=== PATIENT | male | born 2000 | race Caucasian/White ===

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

== ENCOUNTER 2021-01-08 11:34 | Emergency (ER) | payer OTHER, SELFPAY ==
[2021-01-08 11:46] VITALS: BP 119/72; PULSE 67; RESP 20; TEMP 36.9; O2SAT 98
--- NOTE | 2021-01-08 12:01 | ED.WOUNDLAC ---
HPI - Wound/Laceration General Chief Complaint: Wound/Laceration Stated Complaint: lt leg laceration Time Seen by Provider: 01/08/21 11:40 Source: patient Mode of arrival: ambulatory History of Present Illness HPI narrative: 20-year-old male presents to [facility] with complaints of laceration to his left knee which occurred prior to arrival. Patient reports that he was trimming hedges with a trimmer and reinforcer slipped and cut his left knee. Patient is unsure of his last tetanus shot. Patient denies numbness, tingling or decreased range of motion. Onset (ago): minute(s) (30) Extremity Location: Left: knee Patient tetanus UTD: No Context: accidental Associated symptoms: none Related Data Allergies Allergy/AdvReac Type Severity Reaction Status Date / Time No Known Allergies Allergy Verified 12/21/19 14:52 Review of Systems Constitutional: Constitutional: Denies chills, Denies fatigue, Denies fever(s) and Denies weakness Cardiovascular: Cardiovascular: Denies chest pain Respiratory: Respiratory: Denies cough, Denies dyspnea and Denies wheezing Gastrointestinal: Gastrointestinal: Denies abdominal pain, Denies nausea and Denies vomiting Integumentary/Breasts: Skin/Breast: Denies pruritus, Denies erythema and Denies rash Comments: Laceration to left knee Neurologic: Denies vertigo, Denies dizziness and Denies syncope Endocrine: Endocrine: Denies fatigue PMFSH Social History Social History (Updated 01/08/21 @ 12:04 by Taylor Simon, DOCUMENTATION SPECIALIST) Smoking status: Current every day smoker Gender identity (if verbalized by the patient): Male Comments At time of signature, I agree with nursing past medical, surgical, social and family history. There is no relevant family history pertinent to the presenting complaint. Exam Const: General: no acute distress Nutritional Appearance: well nourished Orientation/consciousness: patient oriented x3 Resp: Effort & Inspection: normal respiratory effort, not labored, not tachypneic and no use of accessory muscles Auscultation: clear to auscultation bilaterally and no wheezes Cardio: Rate: regular rate, not bradycardic and not tachycardic Rhythm: regular rhythm Heart sounds: no murmurs Skin: General skin exam: normal color Rashes: no rashes Other: There are 3 lacerations noted to left knee --two lacerations measure 1 cm each. There is also a 1.5 cm laceration noted. There is no active bleeding noted. There is no streaking erythema, necrotic tissue, bruising or bleeding noted Neuro: General: patient oriented x3 and moves all extremities Speech: normal speech Extrem: General: no pedal edema Other: 3 lacerations noted to left knee --see skin section of chart Psych: Appearance: grossly normal Mental Status: mental status grossly normal Affect: normal affect Attitude: cooperative Thought content: Yes Normal thought content present Course Vital Signs Vital signs: Vital Signs Temperature 36.9 C 01/08/21 11:46 Pulse Rate 67 01/08/21 11:46 Respiratory Rate 20 01/08/21 11:46 Blood Pressure 119/72 01/08/21 11:46 Pulse Oximetry 98 01/08/21 11:46 Temperature 36.9 C 01/08/21 11:46 Pulse Rate 67 01/08/21 11:46 Respiratory Rate 20 01/08/21 11:46 Blood Pressure 119/72 01/08/21 11:46 Pulse Oximetry 98 01/08/21 11:46 Procedures Laceration Laceration 1: Date: 01/08/21 Time: 12:35 Site: lower extremity (left knee ) Size (cm): 1.5 Description: irregular Depth: simple, single layer Local Anesthetic: lidocaine 1% Amount of anesthesia used (mL): 2 Pre-repair: irrigated ====== Skin Level ====== Skin layer closed with: nylon Size (cm): 5-0 Number of sutures: 5 Technique: simple, interrupted ====== Subcutaneous Layer ====== ====== Muscle Layer ====== ====== Tendon Layer ====== Laceration 2: Date: 01/08/21 Time: 12:36
[2021-01-08] MEDS: TETANUS,DIPHTHERIA,AC PERTUSSIS ADULT (0.5 ML) BOOSTRIX IM (12:19)
== END 2021-01-08 12:46 | disposition home or self-care (01) ==
PROVIDERS: Emergency Provider Nurse Practitioner Family
DX: S81.012A Laceration without foreign body, left knee, initial encounter (principal); W29.3XXA Contact with powered garden and outdoor hand tools and machinery, initial encounter; Z23 Encounter for immunization; F17.200 Nicotine dependence, unspecified, uncomplicated
CPT/HCPCS: 12002; 90471; 90715; 99213; G0463

== ENCOUNTER 2021-01-10 11:18 | Emergency (ER) | payer OTHER, SELFPAY ==
--- NOTE | 2021-01-10 11:51 | ED_ITS ---
HPI - Wound/Laceration General Chief Complaint: Wound/Laceration Stated Complaint: Left knee cap stiches bleeding Source: patient Mode of arrival: ambulatory Limitations: no limitations History of Present Illness HPI narrative: this is 20-year-old gentleman that had a laceration that was repaired 2 days ago currently has sutures, and was concerned that there was a little doubt of blood on his Stuart bandage and was concerned, currently there is no pus draining currently no bleeding there is some scant amount of blood on his Stuart wrap but currently not bleeding there is some amount of erythema but currently on Keflex. Patient has no fever chills. Onset (ago): day(s) Location: other ( left knee) Extremity Location: Left: knee ( suture repair 2 days ago) Place: home Context: accidental Related Data Allergies Allergy/AdvReac Type Severity Reaction Status Date / Time No Known Allergies Allergy Verified 12/21/19 14:52 Review of Systems Review of Systems: All systems reviewed & are unremarkable except as noted in HPI and below PMFSH Past Medical History Medical History Patient denies medical problems Social History Social History Smoking status: Current every day smoker Gender identity (if verbalized by the patient): Male Exam Const: General: no acute distress Orientation/consciousness: patient oriented x3 HENMT: Head: normal to inspection Eyes: Conjunctivae: conjunctivae normal Pupils: Equal, round and reactive pupils present EOM: EOMs intact bilaterally Neck: Neck: normal visual inspection, no lymphadenopathy and no meningeal signs Chest: Chest palpation & inspection: normal inspection of the chest Resp: Effort & Inspection: normal respiratory effort Cardio: Rate: regular rate Rhythm: regular rhythm GI: GI Palp: Yes Soft to palpation Urinary Catheter: Urinary Catheter: patent and draining Back/Spine/Pelvis: Back: no CVA tenderness Skin: General skin exam: normal color Other: sutures in place looks well- approximated there is currently no bleeding no drainage no fever chills no warmth. Course Course Emergency Course: Area was evaluated patient was concerned with a scant amount of blood that is dried on his Stuart bandage, reassured the patient that some normal and currently no bleeding and will place bandage over the suture site. Critical Care Time Critical Care Time Critical Care Time: No Discharge Plan Discharge Clinical Impression: Laceration Patient Disposition: Home, Self-Care Condition: Stable Instructions: Antibiotic Form, Chronic Wounds (ED), Care For Your Stitches (ED) Additional Instructions: Advised patient to continue current antibiotics and follow-up with primary care physician to have sutures removed in approximately 1 week. Prescriptions: No Action cephalexin 500 mg capsule 500 mg PO Q12H 10 Days Qty: 20 RF: 0 Follow-up/Referrals: UNKNOWN,DOCTOR [Primary Care Provider] - Time of Disposition: 11:55
[2021-01-10 11:52] VITALS: BP 144/77; PULSE 70; RESP 14; TEMP 37; O2SAT 98
== END 2021-01-10 12:02 | disposition home or self-care (01) ==
PROVIDERS: Emergency Provider Emergency Medicine
DX: S81.012D Laceration without foreign body, left knee, subsequent encounter (principal)
CPT/HCPCS: 99282

== ENCOUNTER 2021-01-19 10:27 | Emergency (ER) | payer OTHER, SELFPAY ==
[2021-01-19 10:43] VITALS: BP 115/87; PULSE 59; RESP 16; TEMP 37.2; O2SAT 99
--- NOTE | 2021-01-19 10:59 | ED.GENADULT ---
HPI - General Adult General Chief complaint: Skin/Abscess/Foreign Body Stated complaint: L knee pain from stitches Time Seen by Provider: 01/19/21 10:45 Source: patient, RN notes reviewed and old records reviewed Mode of arrival: ambulatory Limitations: no limitations History of Present Illness HPI narrative: Pt to ED for removal of sutures from left knee healed laceratuions: 3.2 cm and 4 cm. no acute pain or drainage. MD complaint: left knee suture removal. Onset (ago): week(s) (2 weeks) Location: left (left knee.) Radiation: non-radiation and other (no acute pain) Pain Consistency: other (no pain) Relieving factors: none Exacerbating factors: none Associated symptoms: denies other symptoms Treatments prior to arrival: none Related Data Allergies Allergy/AdvReac Type Severity Reaction Status Date / Time No Known Allergies Allergy Verified 12/21/19 14:52 Review of Systems Review of Systems: All systems reviewed & are unremarkable except as noted in HPI and below Constitutional: Constitutional: Reports no additional constitutional complaints Eyes: Eyes: Reports no additional eye complaints ENT: Reports system reviewed and no additional complaints, except as documented Cardiovascular: Cardiovascular: Reports no additional cardiovascular complaints Respiratory: Respiratory: Reports no additional respiratory complaints Gastrointestinal: Gastrointestinal: Reports no additional gastrointestinal complaints Genitourinary: Genitourinary: Reports no additional male genitourinary complaints Musculoskeletal: Musculoskeletal: Reports no additional musculoskeletal complaints Comments: left knee healed lacerations. pain-free. Integumentary/Breasts: Skin/Breast: Reports system reviewed and no additional complaints, except as docu Neurologic: Reports system reviewed and no additional complaints, except as documented Psychiatric: Psychiatric: Reports no additional psychiatric complaints Endocrine: Endocrine: Reports no additional endocrine complaints Hematologic/Lymphatic: Hematologic/Lymphatic: Reports no additional hematologic/lymphatic complaints Allergic/Immunologic: Allergic/Immunologic: Reports no additional allergic/immunologic complaints PMFSH Past Medical History Medical History (Updated 01/19/21 @ 11:10 by Weston Leiva MD) Laceration of knee without complication Patient denies medical problems Social History Social History Smoking status: Current every day smoker Gender identity (if verbalized by the patient): Male Exam Const: General: no acute distress and alert Nutritional Appearance: well nourished Orientation/consciousness: patient oriented x3 HENMT: Head: normal to inspection Ears: external ears normal and TM's normal bilaterally General nose exam: Normal external nose present and Normal nares present Mouth: Yes lip normal Teeth and gingiva: dentition normal Eyes: Conjunctivae: conjunctivae normal Pupils: Equal, round and reactive pupils present EOM: EOMs intact bilaterally Neck: Neck: normal visual inspection Other: supple. Chest: Chest palpation & inspection: normal inspection of the chest Resp: Effort & Inspection: normal respiratory effort Auscultation: clear to auscultation bilaterally Cardio: Rate: regular rate Rhythm: regular rhythm GI: GI Palp: Yes Soft to palpation Percussion: Yes normal to percussion : Testes: Testes normal Back/Spine/Pelvis: Back: no CVA tenderness Other: left knee: healed anterior lacerations, 3.2 and 4 cm. left knee exam wnl. Skin: General skin exam: normal color Rashes: no rashes Neuro: General: patient oriented x3, moves all extremities and no focal motor deficits Extrem: General: normal to inspection and no pedal edema Psych: Appearance: grossly normal and well kempt Mental Status: mental status grossly normal Affect: normal affect Thought content: Yes Normal thought
== END 2021-01-19 11:06 | disposition home or self-care (01) ==
PROVIDERS: Emergency Provider Emergency Medicine
DX: S81.012S Laceration without foreign body, left knee, sequela (principal)
CPT/HCPCS: 99281; 99282

== ENCOUNTER 2021-06-15 07:05 | Emergency (ER) | payer OTHER, SELFPAY ==
[2021-06-15 07:14] VITALS: BP 138/81; PULSE 92; RESP 18; TEMP 37.1; O2SAT 96
--- NOTE | 2021-06-15 07:41 | ED_ITS ---
HPI - Dental/Oral General Chief complaint: Dental/Oral Stated complaint: dental issue Source: patient Mode of arrival: ambulatory Limitations: no limitations History of Present Illness HPI Narrative: this is a 21-year-old gentleman that presents with chronic tooth decay has a are cracked tooth that occurred months ago felt like it had improved and did not follow his dentist and currently having pain with surrounding gum inflammation with no fever chills no shortness of breath. MD Complaint: tooth pain Teeth map: 1. tooth decay with a cracked tooth with surrounding gum inflammation Onset (ago): week(s) Duration: constant Severity: moderate Severity scale (1-10): 6 Relieving factors: NSAIDs Exacerbating factors: chewing and cold Related Data Allergies Allergy/AdvReac Type Severity Reaction Status Date / Time No Known Allergies Allergy Verified 06/15/21 07:23 Review of Systems Review of Systems: All systems reviewed & are unremarkable except as noted in HPI and below PMFSH Past Medical History Medical History Laceration of knee without complication Patient denies medical problems Social History Social History Smoking status: Current every day smoker Gender identity (if verbalized by the patient): Male Exam Const: General: no acute distress Orientation/consciousness: patient oriented x3 HENMT: Head: normal to inspection Other: A dental left upper incisor with cracked tooth with a tooth decay and surrounding gum inflammation Eyes: Conjunctivae: conjunctivae normal Pupils: Equal, round and reactive pupils present Neck: Neck: normal visual inspection, no lymphadenopathy and no meningeal signs Chest: Chest palpation & inspection: normal inspection of the chest Resp: Effort & Inspection: normal respiratory effort Auscultation: clear to auscultation bilaterally Cardio: Rate: regular rate Rhythm: regular rhythm GI: Auscultation: normal bowel sounds : Testes: Testes normal Urinary Catheter: Urinary Catheter: patent and draining Back/Spine/Pelvis: Back: no CVA tenderness Skin: General skin exam: normal color Rashes: no rashes Psych: Mental Status: mental status grossly normal Affect: normal affect Attitude: cooperative Course Course Emergency Course: 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 Critical Care Time Critical Care Time Critical Care Time: No Discharge Plan Discharge Clinical Impression: Dental caries, Toothache, Dental abscess Patient Disposition: Home, Self-Care Instructions: Antibiotic Form, Dental Abscess (ED), Toothache (ED) Additional Instructions: Take medicine as prescribed and follow-up with dentist as scheduled. Prescriptions: New amoxicillin 500 mg capsule 500 mg PO TID Qty: 30 RF: 0 tramadol [Ultram] 50 mg tablet 50 mg PO Q6H PRN (Reason: pain) Qty: 14 RF: 0 Follow-up/Referrals: UNKNOWN,DOCTOR [Primary Care Provider] - Stand Alone Forms: Work/School Release IP
--- NOTE | 2021-06-20 20:09 | ED.DENTAL ---
HPI - Dental/Oral General Chief complaint: Dental/Oral Stated complaint: dental issue Source: patient Mode of arrival: ambulatory Limitations: no limitations History of Present Illness HPI Narrative: this is a 21-year-old gentleman that presents with some dental decay with some dental pain with no fever chills no shortness of breath no nausea vomiting Complaint: tooth pain Onset (ago): day(s) Duration: constant Severity: moderate Relieving factors: NSAIDs Exacerbating factors: chewing, drinking fluids and swallowing Related Data Allergies Allergy/AdvReac Type Severity Reaction Status Date / Time No Known Allergies Allergy Verified 06/15/21 07:23 Review of Systems Review of Systems: All systems reviewed & are unremarkable except as noted in HPI and below PMFSH Past Medical History Medical History Laceration of knee without complication Patient denies medical problems Social History Social History Smoking status: Current every day smoker Gender identity (if verbalized by the patient): Male Exam Const: General: no acute distress and alert Orientation/consciousness: patient oriented x3 HENMT: Head: normal to inspection Eyes: Conjunctivae: conjunctivae normal Pupils: Equal, round and reactive pupils present Neck: Neck: normal visual inspection, no lymphadenopathy and no meningeal signs Chest: Chest palpation & inspection: normal inspection of the chest Resp: Effort & Inspection: normal respiratory effort Urinary Catheter: Urinary Catheter: patent and draining Skin: General skin exam: normal color Rashes: no rashes Neuro: General: patient oriented x3 and moves all extremities Extrem: General: normal to inspection and no pedal edema Psych: Mental Status: mental status grossly normal Course Course Emergency Course: patient given pain medication and sent antibiotics to his pharmacy advised to follow-up with dentist. Vital Signs Vital signs: Vital Signs Temperature 37.1 C 06/15/21 07:14 Pulse Rate 92 06/15/21 07:14 Respiratory Rate 18 06/15/21 07:14 Blood Pressure 138/81 06/15/21 07:14 Pulse Oximetry 96 06/15/21 07:14 Temperature 37.1 C 06/15/21 07:14 Pulse Rate 92 06/15/21 07:14 Respiratory Rate 18 06/15/21 07:14 Blood Pressure 138/81 06/15/21 07:14 Pulse Oximetry 96 06/15/21 07:14 Critical Care Time Critical Care Time Critical Care Time: No Discharge Plan Discharge Clinical Impression: Dental caries, Toothache, Dental abscess Patient Disposition: Home, Self-Care Condition: Stable Instructions: Antibiotic Form, Dental Abscess (ED), Toothache (ED) Additional Instructions: Take medicine as prescribed and follow-up with dentist as scheduled. Prescriptions: New amoxicillin 500 mg capsule 500 mg PO TID Qty: 30 RF: 0 tramadol [Ultram] 50 mg tablet 50 mg PO Q6H PRN (Reason: pain) Qty: 14 RF: 0 Follow-up/Referrals: UNKNOWN,DOCTOR [Primary Care Provider] - Stand Alone Forms: Work/School Release IP Time of Disposition: 20:11
== END 2021-06-15 07:53 | disposition home or self-care (01) ==
PROVIDERS: Emergency Provider Emergency Medicine
DX: K02.9 Dental caries, unspecified (principal); K08.89 Other specified disorders of teeth and supporting structures; K04.7 Periapical abscess without sinus
CPT/HCPCS: 99283

== ENCOUNTER 2021-10-17 09:13 | Emergency (ER) | payer OTHER, SELFPAY ==
[2021-10-17 09:15] VITALS: BP 132/95; PULSE 60; RESP 16; TEMP 36.2; O2SAT 99
--- NOTE | 2021-10-17 09:42 | ED.URI ---
HPI - URI/Sore Throat General Chief Complaint: Upper Respiratory Infection Stated Complaint: MUCUS IN THROAT Time Seen by Provider: 10/17/21 09:42 Source: patient Mode of arrival: ambulatory Limitations: no limitations History of Present Illness HPI Narrative: this is a 21-year-old gentleman that presents with nasal congestion with postnasal drip bilateral ear pressure frontal sinus pressure for the last 4 to 5 days with low-grade fevers with no shortness of breath no chest pain no nausea vomiting. MD elicited complaint: fever, cough and nasal congestion Onset (ago): day(s) Consistency: constant Severity: mild Description of mucous: watery Related Data Allergies Allergy/AdvReac Type Severity Reaction Status Date / Time No Known Allergies Allergy Verified 10/17/21 09:24 Review of Systems Review of Systems: All systems reviewed & are unremarkable except as noted in HPI and below PMFSH Past Medical History Medical History Laceration of knee without complication Patient denies medical problems Social History Social History Smoking status: Current every day smoker Gender identity (if verbalized by the patient): Male Exam Const: General: no acute distress and alert Orientation/consciousness: patient oriented x3 HENMT: Head: normal to inspection Other: Frontal sinus and tenderness with palpation Eyes: Conjunctivae: conjunctivae normal Pupils: Equal, round and reactive pupils present Neck: Neck: normal visual inspection, no lymphadenopathy and no meningeal signs Chest: Chest palpation & inspection: normal inspection of the chest Resp: Effort & Inspection: normal respiratory effort Auscultation: clear to auscultation bilaterally GI: GI Palp: Yes Soft to palpation Percussion: Yes normal to percussion Back/Spine/Pelvis: Back: no CVA tenderness Neuro: General: patient oriented x3 and moves all extremities Extrem: General: normal to inspection and no pedal edema Psych: Mental Status: mental status grossly normal Affect: normal affect Course Course Emergency Course: patient here with sinus congestion with currently fever no shortness of Vital Signs Vital signs: Vital Signs Temperature 36.2 C L 10/17/21 09:15 Pulse Rate 60 10/17/21 09:15 Respiratory Rate 16 10/17/21 09:15 Blood Pressure 132/95 H 10/17/21 09:15 Pulse Oximetry 99 10/17/21 09:15 Temperature 36.2 C L 10/17/21 09:15 Pulse Rate 60 10/17/21 09:15 Respiratory Rate 16 10/17/21 09:15 Blood Pressure 132/95 H 10/17/21 09:15 Pulse Oximetry 99 10/17/21 09:15 Critical Care Time Critical Care Time Critical Care Time: No Discharge Plan Discharge Clinical Impression: Sinusitis Qualifiers: Sinusitis location: frontal Chronicity: acute Recurrence: non-recurrent Qualified Code(s): J01.10 - Acute frontal sinusitis, unspecified Patient Disposition: Home, Self-Care Condition: Stable Instructions: Antibiotic Form, Sinusitis (ED) Additional Instructions: can take Claritin D [id number] twice daily x5 days along with prescribed medication, and follow-up with primary care physician if symptoms persist or worsen. Prescriptions: New azithromycin [Zithromax Z-Robin] 250 mg tablet See Rx Instructions .ROUTE .COMPLEX Qty: 6 RF: 0 benzonatate 100 mg capsule 100 mg PO TID Qty: 20 RF: 0 Follow-up/Referrals: UNKNOWN,DOCTOR [Primary Care Provider] - Time of Disposition: 09:46
== END 2021-10-17 09:52 | disposition home or self-care (01) ==
PROVIDERS: Emergency Provider Emergency Medicine
DX: J01.10 Acute frontal sinusitis, unspecified (principal)
CPT/HCPCS: 99283

== ENCOUNTER 2022-04-07 08:54 | Emergency (ER) | payer OTHER, SELFPAY ==
[2022-04-07 09:06] VITALS: BP 142/82; PULSE 56; RESP 18; TEMP 36.4; O2SAT 100
[2022-04-07 09:25] LABS: Basophils Absolute Auto 0.04 K/mm3 (0.00-0.10); Basophils Percent Auto 0.7 % (0.0-1.0); Eosinophils Absolute Auto 0.09 K/mm3 (0.02-0.50); Eosinophils Percent Auto 1.5 % (1.0-6.0); Hematocrit 43.2 % (40.0-54.0); Hemoglobin 14.6 g/dL (14.0-18.0); Immature Granulocyte Absolute 0.03 K/mm3 (0.00-0.00); Immature Granulocyte Percent A 0.5 % (0.0-0.0); Lymphocytes Absolute Auto 1.49 K/mm3 (1.10-4.50); Lymphocytes Percent Auto 25.6 % (18.0-42.0); Mean Corpuscular HGB Conc 33.8 g/dL (32.0-36.0); Mean Corpuscular Hemoglobin 32.3 pg (27.0-31.0); Mean Corpuscular Volume 95.6 fL (78.0-102.0); Mean Platelet Volume 9.8 fl (8.7-11.0); Monocytes Absolute Auto 0.45 K/mm3 (0.10-0.90); Monocytes Percent Auto 7.7 % (2.0-11.0); Neutrophils Absolute Auto 3.7 K/mm3 (1.7-7.2); Platelet Count Result 218 K/mm3 (150-420); Red Blood Count 4.52 M/mm3 (4.70-6.10); Red Cell Distribution Width 11.9 % (11.6-14.4); White Blood Count 5.8 K/mm3 (4.8-10.8)
[2022-04-07 09:40] LABS: Alanine Aminotransferase 17 U/L (16-63); Albumin Level 3.9 g/dL (3.4-5.0); Alkaline Phosphatase 59 U/L (46-116); Anion Gap 8 mmol/L (8-16); Aspartate Amino Transferase 14 U/L (15-37); Bilirubin,Total 0.5 mg/dL (0.00-1.00); Blood Urea Nitrogen 14 mg/dL (7-18); Calcium 8.8 mg/dL (8.5-10.1); Carbon Dioxide 27 mmol/L (21-32); Chloride 105 mmol/L (98-108); Estimated CRCL calculation 118 ml/min; Estimated Glomerular Filt Rate > 60; Glucose 92 mg/dL (70-99); Lipase 50 U/L (73-393); Osmolality Calculated 290 mOsm/kg (285-295); Potassium 3.7 mmol/L (3.5-5.1); Sodium 140 mmol/L (136-145); Total Protein 6.8 g/dL (6.4-8.2)
[2022-04-07] MEDS: MAG HYDROX/ALUMINUM HYD/SIMETH 30 ML, PHENobarb/HYOSCY/ATROPINE/SCOP 32.4 MG, LIDOCAINE... PO (09:40)
--- NOTE | 2022-04-07 09:59 | ED.ABDPAIN ---
HPI - Abdominal Pain General Chief Complaint: Abdominal Pain Stated Complaint: ABDOMINAL PAIN, NAUSEA Time Seen by Provider: 04/07/22 09:06 History of Present Illness HPI narrative: Pt presents with queezy feeling in his stomach and sour stomach. Pt deneis pain. Pt has loose stools but denies diarrhea. Pt denies balck stools. Pt has had similar issues off and on since middle school but has not seen anyone for years. Pt trying to get established with PCP. Related Data Allergies Allergy/AdvReac Type Severity Reaction Status Date / Time No Known Allergies Allergy Verified 04/07/22 09:19 Review of Systems Review of Systems: All systems reviewed & are unremarkable except as noted in HPI and below PMFSH Past Medical History Medical History Laceration of knee without complication Patient denies medical problems Social History Social History Smoking status: Current every day smoker Gender identity (if verbalized by the patient): Male Exam Const: General: healthy appearing and no acute distress Nutritional Appearance: well nourished Orientation/consciousness: patient oriented x3 Limitations: no limitations Resp: Effort & Inspection: normal respiratory effort Auscultation: clear to auscultation bilaterally Cardio: Rate: regular rate Rhythm: regular rhythm GI: GI Palp: Yes Soft to palpation Auscultation: normal bowel sounds Skin: General skin exam: normal color Rashes: no rashes Wounds: no wounds Neuro: General: patient oriented x3, moves all extremities, no meningeal signs and no focal motor deficits Speech: normal speech Extrem: General: normal to inspection and no clubbing, cyanosis or edema Psych: Mental Status: mental status grossly normal Affect: normal affect Attitude: cooperative Course Vital Signs Vital signs: Vital Signs Temperature 97.5 F L 04/07/22 09:06 Pulse Rate 56 L 04/07/22 09:06 Respiratory Rate 18 04/07/22 09:06 Blood Pressure 142/82 H 04/07/22 09:06 Pulse Oximetry 100 04/07/22 09:06 Oxygen Delivery Room Air 04/07/22 09:06 Temperature 97.5 F L 04/07/22 09:06 Pulse Rate 56 L 04/07/22 09:06 Respiratory Rate 18 04/07/22 09:06 Blood Pressure 142/82 H 04/07/22 09:06 Pulse Oximetry 100 04/07/22 09:06 Oxygen Delivery Room Air 04/07/22 09:06 MDM - Abdominal Pain Lab Data Result diagrams: 04/07/22 09:20 04/07/22 09:20 Labs: Lab Results 04/07/22 04/07/22 Range/Units 09:20 09:20 WBC 5.8 (4.8-10.8) K/mm3 RBC 4.52 L (4.70-6.10) M/mm3 Hgb 14.6 (14.0-18.0) g/dL Hct 43.2 (40.0-54.0) % MCV 95.6 (78.0-102.0) fL MCH 32.3 H (27.0-31.0) pg MCHC 33.8 (32.0-36.0) g/dL RDW 11.9 (11.6-14.4) % Plt Count 218 (150-420) K/mm3 MPV 9.8 (8.7-11.0) fl Immature Gran % (Auto) 0.5 H (0.0-0.0) % Neut % (Auto) 64.0 (50.0-70.0) % Lymph % (Auto) 25.6 (18.0-42.0) % [place] % (Auto) 7.7 (2.0-11.0) % Eos % (Auto) 1.5 (1.0-6.0) % Baso % (Auto) 0.7 (0.0-1.0) % Lymph # (Auto) 1.49 (1.10-4.50) K/mm3 [place] # (Auto) 0.45 (0.10-0.90) K/mm3 Eos # (Auto) 0.09 (0.02-0.50) K/mm3 Baso # (Auto) 0.04 (0.00-0.10) K/mm3 Abs Immat Gran (auto) 0.03 H (0.00-0.00) K/mm3 Absolute Neuts (auto) 3.7 (1.7-7.2) K/mm3 Absolute Nucleated RBC 0.00 (0.00-0.00) K/mm3 Nucleated RBC % 0.0 (0-0.0) % Sodium 140 (136-145) mmol/L Potassium 3.7 (3.5-5.1) mmol/L Chloride 105 (98-108) mmol/L Carbon Dioxide 27 (21-32) mmol/L Anion Gap 8 (8-16) mmol/L BUN 14 (7-18) mg/dL Creatinine 0.91 (0.70-1.30) mg/dL Estim Creat Clear Calc 118 ml/min Estimated GFR > 60 (59 - ) Glucose 92 (70-99) mg/dL Calculated Osmolality 290 (285-295) mOsm/kg Calcium 8.8 (8.5-10.1) mg/dL Total Bilirubin 0.5 (0.00-1.00) mg/dL AST 14 L (15-37) U
== END 2022-04-07 10:21 | disposition home or self-care (01) ==
PROVIDERS: Emergency Provider Emergency Medicine
DX: K29.70 Gastritis, unspecified, without bleeding (principal)
CPT/HCPCS: 36415; 80053; 83690; 85025; 99283; A9270

== ENCOUNTER 2022-04-25 08:43 | Outpatient (CLI) | payer OTHER, SELFPAY ==
--- NOTE | ~2022-04-25 | US_ITS ---
EXAMINATION: US abdomen complete DATE: 04/25/2022 09:23 INDICATION: Nausea TECHNIQUE: Multiple grayscale and Doppler ultrasound images of the abdomen were obtained. COMPARISON: None available FINDINGS: Bowel gas obscures visualization of the pancreas. The visualized portions of the pancreas a re unremarkable. The liver is normal with normal echogenicity and echotexture. No surface nodularity. Normal hepatopetal flow in the main portal vein. The gallbladder is normal with no abnormal wall thi ckening, pericholecystic fluid or stones. The normal common bile duct measures 2 mm. There was no son ographic Zulu[place] sign. The visualized portions of the aorta and inferior vena cava are normal. The right kidney measures 9.5 x 4.9 x 4.9 cm. The left kidney measures 11.3 x 5.0 x 5.7 cm. The kidne ys demonstrate normal parenchymal echogenicity. There is no hydronephrosis. The spleen is normal in a ppearance and measures 10.8 cm. IMPRESSION: 1. No sonographic correlate for the patient's symptoms. Reviewed, dictated and finalized at location B.
== END 2022-04-25 08:44 | disposition home or self-care (01) ==
LOC: CHSIMG 08:45
PROVIDERS: PCP Family Medicine; Visit Provider Nurse Practitioner Family
DX: R11.0 Nausea (principal)
CPT/HCPCS: 76700

== ENCOUNTER 2022-05-27 13:09 | Emergency (ER) | payer OTHER, SELFPAY ==
--- NOTE | ~2022-05-27 | XR_ITS ---
EXAMINATION: XR chest 1V portable DATE: 05/27/2022 14:47 INDICATION: Cough. COVID-19 positive. TECHNIQUE: A single frontal view of the chest was obtained on 2 radiographs. COMPARISON: None. FINDINGS: There is no pneumonia, pleural effusion, pneumothorax. The heart size is normal. IMPRESSION: 1. No acute cardiopulmonary disease. Reviewed, dictated and finalized at location A. 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
[2022-05-27 13:25] VITALS: BP 138/92; PULSE 94; RESP 20; TEMP 36.7; O2SAT 97
--- NOTE | 2022-05-27 14:13 | ED.FEVER ---
HPI - Fever General Chief Complaint: Fever Stated Complaint: fever Time Seen by Provider: 05/27/22 13:25 History of Present Illness HPI Narrative: Pt presents with fever, body aches, cough and sore throat today. Pt says he took motrin and fever has broken because he is sweating. Pt denies vomiting or diarrhea. Pt denies known exposures and no family members are sick. Related Data Allergies Allergy/AdvReac Type Severity Reaction Status Date / Time No Known Allergies Allergy Verified 05/27/22 13:31 Review of Systems Review of Systems: All systems reviewed & are unremarkable except as noted in HPI and below PMFSH Past Medical History Medical History Laceration of knee without complication Patient denies medical problems Social History Social History Smoking status: Current every day smoker Gender identity (if verbalized by the patient): Male Exam Const: General: healthy appearing and no acute distress Nutritional Appearance: well nourished Orientation/consciousness: patient oriented x3 Limitations: no limitations HENMT: Head: normal to inspection Face/Nose/Sinus: Normal external nose present Mouth: Yes Normal oral and palatal mucosa present Throat: posterior oropharynx normal Eyes: EOM: EOMs intact bilaterally Neck: Neck: normal visual inspection, no lymphadenopathy and no meningeal signs Resp: Effort & Inspection: normal respiratory effort Auscultation: clear to auscultation bilaterally Cardio: Rate: regular rate Rhythm: regular rhythm GI: GI Palp: Yes Soft to palpation Auscultation: normal bowel sounds Skin: General skin exam: normal color Rashes: no rashes Neuro: General: patient oriented x3, moves all extremities, no meningeal signs, no focal motor deficits and CN's II-XI intact bilaterally Cranial nerves: Yes Nystagmus not present Speech: normal speech Extrem: General: normal to inspection, no clubbing, cyanosis or edema and no pedal edema Psych: Appearance: grossly normal Mental Status: mental status grossly normal Affect: normal affect Attitude: cooperative Course Vital Signs Vital signs: Vital Signs Temperature 98.1 F 05/27/22 13:25 Pulse Rate 94 05/27/22 13:25 Respiratory Rate 20 05/27/22 13:25 Blood Pressure 138/92 H 05/27/22 13:25 Pulse Oximetry 97 05/27/22 13:25 Oxygen Delivery Room Air 05/27/22 13:25 Temperature 99.0 F 05/27/22 14:51 Pulse Rate 70 05/27/22 14:51 Respiratory Rate 18 05/27/22 14:51 Blood Pressure 120/63 05/27/22 14:51 Pulse Oximetry 98 05/27/22 14:51 Oxygen Delivery Room Air 05/27/22 14:51 MDM - Fever MDM Narrative Medical decision making narrative: covid positive, discussed varghese, pt would rather not take at this time Lab Data Labs: Lab Results 05/27/22 05/27/22 Range/Units 13:29 13:29 Influenza A (RT-PCR) Negative (Negative) Influenza B (RT-PCR) Negative (Negative) RSV (RT-PCR) Negative (Negative) SARS-CoV-2 RNA (RT-PCR) Positive A (Negative) Group A Strep (PCR) Not detected (Negative) Discharge Plan Discharge Clinical Impression: COVID Patient Disposition: Home, Self-Care Condition: Stable Instructions: Antibiotic Form, COVID-19 (Coronavirus Disease 2019) (ED) Prescriptions: No Action pantoprazole 40 mg tablet,delayed release (DR/EC) 40 mg PO QHS Qty: 30 1RF Follow-up/Referrals: Angelina Guerra NP [Primary Care Provider] - Stand Alone Forms: Work/School Release IP
[2022-05-27 14:18] LABS: Strep Group A RT-PCR Not Detected (Negative)
[2022-05-27 14:25] LABS: Influenza A QL RT-PCR Negative (Negative); Influenza B QL RT-PCR Negative (Negative); SARS-CoV-2 RNA PCR Positive (Negative)
[2022-05-27 14:28] LABS: RSV RNA, RT-PCR Negative (Negative)
[2022-05-27 14:51] VITALS: BP 120/63; PULSE 70; RESP 18; TEMP 37.2; O2SAT 98
== END 2022-05-27 14:59 | disposition home or self-care (01) ==
PROVIDERS: Emergency Provider Emergency Medicine; PCP Nurse Practitioner Family
DX: U07.1 COVID-19 (principal)
CPT/HCPCS: 71045; 87637; 87651; 99283

== ENCOUNTER 2022-06-09 03:21 | Emergency (ER) | payer OTHER, SELFPAY ==
[2022-06-09 03:23] VITALS: BP 114/82; PULSE 85; RESP 16; TEMP 36.9; O2SAT 97
[2022-06-09] MEDS: IBUPROFEN 400 MG TABLET 800 MG PO (03:31)
[2022-06-09 03:54] LABS: Basophils Absolute Auto 0.03 K/mm3 (0.00-0.10); Basophils Percent Auto 0.4 % (0.0-1.0); Eosinophils Absolute Auto 0.02 K/mm3 (0.02-0.50); Eosinophils Percent Auto 0.3 % (1.0-6.0); Hematocrit 40.9 % (40.0-54.0); Hemoglobin 14.1 g/dL (14.0-18.0); Immature Granulocyte Absolute 0.01 K/mm3 (0.00-0.00); Immature Granulocyte Percent A 0.1 % (0.0-0.0); Lymphocytes Percent Auto 16.9 % (18.0-42.0); Mean Corpuscular HGB Conc 34.5 g/dL (32.0-36.0); Mean Corpuscular Hemoglobin 33.1 pg (27.0-31.0); Monocytes Absolute Auto 1.05 K/mm3 (0.10-0.90); Monocytes Percent Auto 14.7 % (2.0-11.0); Neutrophils Absolute Auto 4.8 K/mm3 (1.7-7.2); Neutrophils Percent Auto 67.6 % (50.0-70.0); Platelet Count Result 219 K/mm3 (150-420); Red Blood Count 4.26 M/mm3 (4.70-6.10); Red Cell Distribution Width 12.1 % (11.6-14.4); White Blood Count 7.1 K/mm3 (4.8-10.8)
[2022-06-09 04:06] LABS: Alanine Aminotransferase 15 U/L (16-63); Albumin Level 3.9 g/dL (3.4-5.0); Alkaline Phosphatase 59 U/L (46-116); Anion Gap 7 mmol/L (8-16); Aspartate Amino Transferase 14 U/L (15-37); Bilirubin,Total 0.3 mg/dL (0.00-1.00); Blood Urea Nitrogen 17 mg/dL (7-18); Calcium 8.6 mg/dL (8.5-10.1); Carbon Dioxide 27 mmol/L (21-32); Chloride 104 mmol/L (98-108); Estimated CRCL calculation 93 ml/min; Estimated Glomerular Filt Rate > 60; Glucose 91 mg/dL (70-99); Osmolality Calculated 287 mOsm/kg (285-295); Potassium 3.6 mmol/L (3.5-5.1); Sodium 138 mmol/L (136-145)
[2022-06-09 04:08] VITALS: TEMP 36.6
--- NOTE | 2022-06-09 04:14 | ED.FEVER ---
HPI - Fever General Chief Complaint: Fever Stated Complaint: Sick Time Seen by Provider: 06/09/22 03:23 Source: patient and RN notes reviewed Mode of arrival: ambulatory Limitations: no limitations History of Present Illness MD elicited complaint: fever and other (cough x 2 days.) Onset (ago): day(s) (2) Context: recent antibiotic use Exacerbating factors: nothing Relieving factors: ibuprofen Associated symptoms: myalgias, nasal congestion and cough Treatments prior to arrival fever: ibuprofen Related Data Allergies Allergy/AdvReac Type Severity Reaction Status Date / Time No Known Allergies Allergy Verified 06/09/22 03:59 Review of Systems Review of Systems: All systems reviewed & are unremarkable except as noted in HPI and below Constitutional: Constitutional: Reports no additional constitutional complaints and Reports fever(s) Eyes: Eyes: Reports no additional eye complaints ENT: Reports system reviewed and no additional complaints, except as documented Cardiovascular: Cardiovascular: Reports no additional cardiovascular complaints Respiratory: Respiratory: Reports no additional respiratory complaints Gastrointestinal: Gastrointestinal: Reports no additional gastrointestinal complaints Musculoskeletal: Musculoskeletal: Reports no additional musculoskeletal complaints Integumentary/Breasts: Skin/Breast: Reports system reviewed and no additional complaints, except as docu Neurologic: Reports system reviewed and no additional complaints, except as documented Psychiatric: Psychiatric: Reports no additional psychiatric complaints Endocrine: Endocrine: Reports no additional endocrine complaints Hematologic/Lymphatic: Hematologic/Lymphatic: Reports no additional hematologic/lymphatic complaints Allergic/Immunologic: Allergic/Immunologic: Reports no additional allergic/immunologic complaints PMFSH Past Medical History Medical History Laceration of knee without complication Patient denies medical problems Viral syndrome Social History Social History Smoking status: Current every day smoker Gender identity (if verbalized by the patient): Male Exam Const: General: no acute distress and well nourished Nutritional Appearance: well nourished Orientation/consciousness: patient oriented x3 Limitations: no limitations HENMT: Head: normal to inspection Ears: external ears normal, TM's normal bilaterally and EAC's normal Face/Nose/Sinus: Normal external nose present, Normal nares present, normal facial exam and sinuses nontender Face and sinus: normal facial exam and sinuses nontender Mouth: Yes Normal oral and palatal mucosa present and Yes moist mucous membranes Teeth and gingiva: dentition normal Other: mild pharyngeal redness Eyes: Conjunctivae: conjunctivae normal Pupils: Equal, round and reactive pupils present EOM: EOMs intact bilaterally Neck: Neck: normal visual inspection, no lymphadenopathy and no meningeal signs Chest: Chest palpation & inspection: normal inspection of the chest Resp: Effort & Inspection: normal respiratory effort Auscultation: clear to auscultation bilaterally Cardio: Rate: regular rate Rhythm: regular rhythm GI: GI Palp: Yes Soft to palpation and No Tenderness to palpation present (GI) Auscultation: normal bowel sounds : General: Yes bladder normal to palpation and Yes no CVA tenderness Back/Spine/Pelvis: Back: no CVA tenderness Skin: General skin exam: normal color Rashes: no rashes Wounds: no wounds Neuro: General: patient oriented x3, moves all extremities, no meningeal signs, no focal motor deficits and CN's II-XI intact bilaterally Cranial nerves: Yes Equal, round and reactive pupils present and Yes Nystagmus not present Speech: normal speech Gait exam (Neuro): Normal gait present Extrem: General: normal to inspection and no pedal edema
[2022-06-09] MEDS: guaiFENesin 12 HR 600 MG TABCR PO (04:21)
[2022-06-09 04:34] LABS: Influenza A QL RT-PCR Positive (Negative); Influenza B QL RT-PCR Negative (Negative); SARS-CoV-2 RNA PCR Negative (Negative)
[2022-06-09 04:50] LABS: RSV RNA, RT-PCR Negative (Negative)
[2022-06-09 04:57] VITALS: BP 122/80; PULSE 61; RESP 16; TEMP 36.6; O2SAT 100
== END 2022-06-09 05:04 | disposition home or self-care (01) ==
PROVIDERS: Emergency Provider Emergency Medicine; PCP Nurse Practitioner Family
DX: B34.9 Viral infection, unspecified (principal); Z20.822 Contact with and (suspected) exposure to COVID-19
CPT/HCPCS: 36415; 80053; 85025; 87637; 99283; A9270

== ENCOUNTER 2023-02-10 06:34 | Emergency (ER) | payer OTHER, SELFPAY ==
[2023-02-10] VITALS (18 sets, daily range): BP systolic 131–148; BP diastolic 82–109; PULSE 47–90; RESP 8–22; TEMP 36.7; O2SAT 92–100
--- NOTE | ~2023-02-10 | XR_ITS ---
Portable chest x-ray Comparison: 05/27/2022 Clinical History: Pain Findings: Lungs are clear, without focal consolidation or pleural effusion. Cardiomediastinal silho uette is stable. Bones and soft tissues are unremarkable. Impression: Clear lungs. Reviewed, dictated and finalized at location . Impression: Clear lungs.
--- NOTE | ~2023-02-10 | CT_ITS ---
Non-contrast CT scan of the Abdomen and Pelvis Clinical indication: Abdominal pain Technique: 2.5 mm axial scans were obtained through the abdomen and pelvis without intravenous or or al contrast. Dose reduction technique was used on this scan by utilizing automated exposure control a nd iterative reconstruction technique. The dose-length product (DLP) was 254.86 mGy-cm. Findings: Images through the lung bases reveal no abnormalities. There is a 6.6 x 5.1 x 6.9 cm irregular hypodense masslike lesion in the left upper quadrant, consist ent with large hematoma, abutting the medial aspect of the spleen. No focal splenic lesion identified . The liver, kidneys, pancreas, gallbladder, and adrenals appear normal. There is no aortic aneurysm. There is no evidence of bowel obstruction. Images through the pelvis were performed. Urinary bladder unremarkable. No pelvic mass evident. There is moderate hemorrhagic ascites in the pelvis. Impression: 6.5 x 5.1 x 6.9 cm hematoma in left upper quadrant, abutting the medial aspect of the spleen, with as sociated moderate pelvic hemorrhagic ascites. Precise etiology for the hemorrhage is unclear. No defi nite splenic mass or lesion identified on this noncontrast exam. If there is clinical concern for act judi extravasation/bleeding, then consider CT angiogram for further evaluation. Case discussed with Dr. Cuadra at the time of this reading. Reviewed, dictated and finalized at location M. Impression: 6.5 x 5.1 x 6.9 cm hematoma in left upper quadrant, abutting the medial aspect of the spleen, with associated moderate pelvic hemorrhagic ascites. Precise linnea ology for the hemorrhage is unclear. No definite splenic mass or lesion identif ied on this noncontrast exam. If there is clinical concern for active extravasa tion/bleeding, then consider CT angiogram for further evaluation. Case discussed with Dr. Cuadra at the time of this reading.
--- NOTE | ~2023-02-10 | XR_ITS ---
Left Shoulder Technique: AP and scapular Y views were obtained. Clinical History: Pain Findings: No fracture or dislocation is seen. Osseous alignment is anatomic. The glenohumeral and acr omioclavicular joint spaces are preserved. Soft tissues are unremarkable. Impression: Unremarkable left shoulder radiographs. Reviewed, dictated and finalized at [facility]. Impression: Unremarkable left shoulder radiographs.
--- NOTE | ~2023-02-10 | CT_ITS ---
EXAMINATION: CTA abdomen pelvis DATE: 02/10/2023 08:42 INDICATION: Left upper quadrant abdominal pain. Peritoneal bleed. TECHNIQUE: Computed tomographic angiography (CTA) of the abdomen and pelvis was performed with 100 mL Omnipaque-350 intravenous contrast. Additional 3D reconstructions utilizing rotating maximum intensi ty projection (MIP) were performed. Automated exposure control and iterative reconstruction technique were employed. The dose-length product was 242.73 mGy-cm. COMPARISON: 02/10/2023 at 7:47 AM FINDINGS: Lung bases are clear. Heart size is normal. No pericardial or pleural effusion. Liver, gallbladder, p ancreas, bilateral adrenal glands and kidneys are normal. Again seen is a 6.5 x 5.1 x 6.1 cm hematoma along the anteromedial aspect of the spleen. Within the dome is a small focus of active contrast ext ravasation which appears to rise from a small vessel at the splenic hilum as opposed to directly from the spleen to suggest a splenic injury. The diffusely heterogeneous enhancement pattern of the splee n is most likely related to the early arterial phase of contrast. Additional hemoperitoneum is again seen in the deep pelvis. No abnormal bowel wall thickening or obstruction. Bladder is normal. No free intraperitoneal gas. No pathologically enlarged abdominal or pelvic lymphadenopathy. Small Schmorl's node along the superior endplate of L4. IMPRESSION: 1. Hemoperitoneum with active extravasation at the origin of the bleed arising from a very small vess el near the splenic hilum. Consider endovascular embolization. Dr. Morgan discussed these findings with Dr. Cuadra at 8:52 AM. Reviewed, dictated and finalized at location L. IMPRESSION: 1. Hemoperitoneum with active extravasation at the origin of the bleed arising from a very small vessel near the splenic hilum. Consider endovascular emboliza tion. Dr. Morgan discussed these findings with Dr. Cuadra at 8:52 AM.
--- NOTE | 2023-02-10 06:45 | ECG_ITS ---
Measurements Intervals [place] Rate: 66 P: 80 MD: 141 QRS: 86 QRSD: 92 T: 69 QT: 387 QTc: 408 Interpretive Statements SINUS RHYTHM WITH MARKED SINUS ARRHYTHMIA NORMAL ECG NO PREVIOUS ECG AVAILABLE FOR COMPARISON Electronically Signed On 02-10-2023 13:28:01 CDT by Jona Kang M.D.
--- NOTE | 2023-02-10 06:45 | ED.GENADULT ---
HPI - General Adult General Chief complaint: Abdominal Pain Stated complaint: shoulder and abd pain Time Seen by Provider: 02/10/23 06:45 History of Present Illness HPI narrative: 22-year-old male presenting with abdominal pain and left shoulder pain. Patient states his symptoms started overnight. He describes his pain is near constant stabbing/cramping pain in his upper abdomen that radiates into his chest and left shoulder. He denies any recent injuries or illnesses. Onset (ago): hour(s) Related Data Allergies Allergy/AdvReac Type Severity Reaction Status Date / Time No Known Allergies Allergy Verified 02/10/23 06:39 ON LICENSE OF [facility] Past Medical History Medical History Laceration of knee without complication Patient denies medical problems Viral syndrome Social History Social History Smoking status: Current every day smoker Gender identity (if verbalized by the patient): Male Exam Const: General: healthy appearing and no acute distress HENMT: Head: normal to inspection and no contusions Ears: external ears normal Face/Nose/Sinus: Normal external nose present and Normal nares present Face and sinus: normal facial exam Eyes: Conjunctivae: conjunctivae normal EOM: EOMs intact bilaterally Neck: Neck: normal visual inspection and no lymphadenopathy Chest: Chest palpation & inspection: normal inspection of the chest and tenderness Other: Tenderness palpation of the left upper chest/ left shoulder. No palpable deformities. No evidence of trauma. Resp: Effort & Inspection: normal respiratory effort and not labored Cardio: Rate: regular rate Rhythm: regular rhythm GI: Inspection: non-distended GI Palp: Yes Soft to palpation and Yes Tenderness to palpation present (GI) Other: Tenderness to palpation in all abdominal quadrants. No palpable masses. No skin discoloration or rashes. : General: Yes bladder normal to palpation and No Bladder palpation abnormal Back/Spine/Pelvis: Back: no CVA tenderness Cervical Spine: No collar present Skin: General skin exam: normal color, no jaundice and no pallor Neuro: General: patient oriented x3 and moves all extremities Extrem: General: normal to inspection and no clubbing, cyanosis or edema Other: No palpable deformities. Neurovascularly intact. Course Vital Signs Vital signs: Vital Signs Temperature 36.7 C 02/10/23 06:39 Pulse Rate 81 08/08/23 06:39 Respiratory Rate 16 02/10/23 06:39 Blood Pressure 139/109 H 02/10/23 06:39 Pulse Oximetry 99 02/10/23 06:39 Oxygen Delivery Room Air 02/10/23 06:39 Temperature 36.7 C 02/10/23 06:40 Pulse Rate 81 02/10/23 06:40 Respiratory Rate 18 02/10/23 06:40 Blood Pressure 139/109 H 02/10/23 06:40 Pulse Oximetry 100 02/10/23 06:40 Oxygen Delivery Room Air 02/10/23 06:40 Medical Decision Making MDM Narrative Medical decision making narrative: Differential diagnosis include but not limited to GERD versus pancreatitis versus PUD versus biliary pathology versus ACS versus pneumothorax versus dissection versus soft tissue injury versus fracture versus dislocation. We will evaluate with labs and imaging. Will administer IV Toradol for pain control. We will reassess and consider advanced imaging following laboratory workup. Patient will need to be signed out to the oncoming physician at shift change with workup pending. She is patient comfortable and hemodynamically stable at time of sign-out. Vital Signs Vital Signs: Vital Signs Temperature 36.7 C 02/10/23 06:39 Pulse Rate 81 02/10/23 06:39 Respiratory Rate 16 02/10/23 06:39 Blood Pressure 139/109 H 02/10/23 06:39 Pulse Oximetry 99 02/10/23 06:39 Oxygen Delivery Room Air 02/10/23 06:39 Temperature 36.7 C 02/10/23 06:40 Pulse Rate 81 02/10/23 06:40 Respiratory R
[2023-02-10] MEDS: MAG HYDROX/ALUMINUM HYD/SIMETH 30 ML, PHENobarb/HYOSCY/ATROPINE/SCOP 32.4 MG, LIDOCAINE... PO (06:53)
[2023-02-10] MEDS: KETOROLAC 30 MG/ML VIAL (*BKC) IV PUSH (06:56)
[2023-02-10 07:13] LABS: Basophils Absolute Auto 0.04 K/mm3 (0.00-0.10); Basophils Percent Auto 0.4 % (0.0-1.0); Eosinophils Absolute Auto 0.08 K/mm3 (0.02-0.50); Eosinophils Percent Auto 0.8 % (1.0-6.0); Hematocrit 42.5 % (40.0-54.0); Hemoglobin 14.9 g/dL (14.0-18.0); Immature Granulocyte Absolute 0.02 K/mm3 (0.00-0.00); Immature Granulocyte Percent A 0.2 % (0.0-0.0); Lymphocytes Absolute Auto 1.75 K/mm3 (1.10-4.50); Lymphocytes Percent Auto 17.5 % (18.0-42.0); Mean Corpuscular HGB Conc 35.1 g/dL (32.0-36.0); Mean Corpuscular Hemoglobin 33.6 pg (27.0-31.0); Mean Corpuscular Volume 95.9 fL (78.0-102.0); Mean Platelet Volume 9.7 fl (8.7-11.0); Monocytes Absolute Auto 0.87 K/mm3 (0.10-0.90); Monocytes Percent Auto 8.7 % (2.0-11.0); Neutrophils Absolute Auto 7.3 K/mm3 (1.7-7.2); Neutrophils Percent Auto 72.4 % (50.0-70.0); Platelet Count Result 255 K/mm3 (150-420); Red Blood Count 4.43 M/mm3 (4.70-6.10); Red Cell Distribution Width 12.1 % (11.6-14.4)
[2023-02-10 07:33] LABS: Alanine Aminotransferase 22 U/L (16-63); Albumin Level 4.2 g/dL (3.4-5.0); Alkaline Phosphatase 56 U/L (46-116); Anion Gap 9 mmol/L (8-16); Aspartate Amino Transferase 14 U/L (15-37); Bilirubin,Total 0.7 mg/dL (0.00-1.00); Blood Urea Nitrogen 15 mg/dL (7-18); Calcium 9.2 mg/dL (8.5-10.1); Carbon Dioxide 28 mmol/L (21-32); Chloride 105 mmol/L (98-108); Estimated CRCL calculation 93 ml/min; Estimated Glomerular Filt Rate > 60; Glucose 104 mg/dL (70-99); Lipase 17 U/L (16-77); Osmolality Calculated 294 mOsm/kg (285-295); Sodium 142 mmol/L (136-145); Total Protein 7.2 g/dL (6.4-8.2); Troponin I 4.3 ng/L (0.00-60.4)
[2023-02-10] MEDS: ONDANSETRON HCL ODT 4 MG TABLET PO (07:40)
[2023-02-10] MEDS: MORPHINE SULFATE (*CRX) 4 MG/ML INJ IM (07:42)
--- NOTE | 2023-02-10 07:55 | PC.NURSE ---
PT REPORTS HE DID NOT HAVE ANY RELIEF OF PAIN WITH INITIAL MEDICATIONS. PT REPORTS ABD CRAMPING. DENIES N-V-D. PT REPORTS LAST BM WAS YESTERDAY AND FEELS IF HE DID NOT HAVE A FULL BM. PT REPORTS IT WASN'T HEALTHY. PT IS AWAITING RESULTS AT THIS TIME.
[2023-02-10] MEDS: SODIUM CHLORIDE 0.9% IV 1,000 ML 999 ML IV CONT (08:14)
[2023-02-10] MEDS: HYDROmorphone HCL INJ (*CRX) 2 MG/ML VIAL 0.5 MG IV PUSH (08:16)
[2023-02-10 08:20] LABS: Partial Thromboplastin Time 25.1 SEC (23.90-30.70); Prothrombin Time 11.1 Seconds (9.50-12.10)
--- NOTE | 2023-02-10 08:20 | PC.NURSE ---
PT REPORTS PAIN REMAINED AT 6. MORE MEDICATIONS WERE ADMINISTERED ORDERED WITHOUT DIFFICULTY. PT IS AWAITING RETURN CALL FROM [facility] AT THIS TIME. IMAGES WERE PUSHED BY RADIOLOGY TO [facility]. UPON EXAM OF PT NO WOUNDS, CONTUSIONS, ABRASIONS ARE NOTED. PT DENIES ANY INJURY. PT REPORTS PAIN BEGAN YESTERDAY AFTER ATTEMPTING TO VOMIT. IVF INFUSING ORDERED WITHOUT DIFFICULTY. VSS PER MONITOR. WILL CONTINUE TO MONITOR. PT REPORTS PAIN RADIATES TO LEFT SHOULDER, IN LEFT UPPER QUADRANT, AND GENERALIZED ABD CRAMPING.
--- NOTE | 2023-02-10 09:29 | PC.NURSE ---
ANOTHER PILLOW PROVIDED FOR COMFORT. FAMILY AT BEDSIDE, AWARE OF PLAN OF CARE. PT IS AGREEABLE TO TRANSFER. VSS PER MONITOR. REPORT CALLED TO KEISHA RAZA AT [facility]. WILL CONTINUE TO MONITOR.
[2023-02-10] MEDS: SODIUM CHLORIDE 0.9% IV 1,000 ML 125 ML IV CONT (09:37)
== END 2023-02-10 09:45 | disposition short-term general hospital (02) ==
PROVIDERS: Emergency Medicine; Emergency Provider Emergency Medicine
DX: R10.9 Unspecified abdominal pain (principal); M25.512 Pain in left shoulder; F17.200 Nicotine dependence, unspecified, uncomplicated
CPT/HCPCS: 36415; 71045; 73030; 74174; 74176; 80053; 83690; 84484; 85025; 85610; 85730; 86850; 86900; 86901; 93005; 96361; 96372; 96374; 96375; 99285; A9270; J1170; J1885; J2270; J7030; Q9967